=== PATIENT | male | born 1980 | race Caucasian/White ===

== ENCOUNTER 2020-05-06 02:26 | Emergency (ER) | payer MEDICAID ==
[~2020-05-06] VITALS: Ht 160 cm; Wt 97.5 kg
[2020-05-06 02:46] VITALS: BP 127/88; Ht 160 cm; Wt 97.5 kg
== END 2020-05-06 03:40 | disposition home or self-care (01) ==
LOC: ED 02:26
DX: K04.7 Periapical abscess without sinus (principal); I10 Essential (primary) hypertension; Z98.890 Other specified postprocedural states